=== PATIENT | male | born 1950 | race Caucasian/White ===

== ENCOUNTER 2023-02-16 14:43 | Emergency (ER) | payer MEDICARE ==
[~2023-02-16] VITALS: Ht 180.3 cm; Wt 68.2 kg
[2023-02-16 17:21] VITALS: BP 135/82
== END 2023-02-16 17:20 | disposition home or self-care (01) ==
LOC: ED 14:43
DX: M79.621 Pain in right upper arm (principal); W11.XXXA Fall on and from ladder, initial encounter

== ENCOUNTER 2024-01-16 08:33 | Emergency (ER) | payer MEDICARE ==
[~2024-01-16] VITALS: Ht 182.9 cm; Wt 73.8 kg
[2024-01-16] MEDS ORDERED: Naproxen 250 MG TAB PO ONE (09:30)
[2024-01-16 10:00] VITALS: BP 123/90
== END 2024-01-16 09:59 | disposition home or self-care (01) ==
LOC: ED 08:33
DX: M65.4 Radial styloid tenosynovitis [de Quervain] (principal); Z87.891 Personal history of nicotine dependence